=== PATIENT | female | born 1995 | race Caucasian/White ===

== ENCOUNTER 2018-08-13 18:17 | Emergency (ER) | payer OTHER, SELFPAY ==
[2018-08-13] MEDS ORDERED: IBUPROFEN 400 MG TAB ONE (20:15)
[2018-08-13] MEDS ORDERED: IBUPROFEN 200 MG TAB PO ONE (20:16)
--- NOTE | 2018-08-13 20:46 | RAD REPORT ---
EXAM DESCRIPTION: RAD - Knee Right 3 View - 08/13/2018 8:28 pm CLINICAL HISTORY: PAIN Trauma COMPARISON: No comparisons FINDINGS: Intraarticular fracture of the lateral tibial plateau is seen with a moderate lipomohemart hrosis. No dislocation evident.
--- NOTE | 2018-08-13 21:31 | EDPHYS ---
Physician Documentation [facility] Name: Radha Aragon Age: 23 yrs Sex: Female : 1995 Arrival Date: 08/13/2018 Time: 18:19 Bed 15 Private MD: ED Physician Cole Villalobos HPI: 08/13 21:26 This 23 yrs old Female presents to ER via Wheelchair with complaints of Knee gs Injury. 21:26 The complaints affect the right knee. Context: The problem was sustained at a sports gs field or court, resulted from the patient falling, while jumping. Onset: The symptoms/episode began/occurred acutely, just prior to arrival. Modifying factors: the symptoms are aggravated by movement, weight bearing. Associated signs and symptoms: Pertinent negatives numbness, weakness. Severity of symptoms: At their worst the symptoms were moderate, in the emergency department the symptoms are unchanged. The patient has not experienced similar symptoms in the past. 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 - Social history:: Smoking status: Patient/guardian denies using tobacco. - Ebola Screening: : No symptoms or risks identified at this time. ROS: 21:26 All other systems are negative. gs Exam: 21:26 Head/Face: Normocephalic, atraumatic. Eyes: Pupils equal round and reactive to light, gs extra-ocular motions intact. Lids and lashes normal. Conjunctiva and sclera are non-icteric and not injected. Cornea within normal limits. Periorbital areas with no swelling, redness, or edema. ENT: Nares patent. No nasal discharge, no septal abnormalities noted. Tympanic membranes are normal and external auditory canals are clear. Oropharynx with no redness, swelling, or masses, exudates, or evidence of obstruction, uvula midline. Mucous membranes moist. Neck: Trachea midline, no thyromegaly or masses palpated, and no cervical lymphadenopathy. Supple, full range of motion without nuchal rigidity, or vertebral point tenderness. No Meningismus. Chest/axilla: Normal chest wall appearance and motion. Nontender with no deformity. No lesions are appreciated. Cardiovascular: Regular rate and rhythm with a normal S1 and S2. No gallops, murmurs, or rubs. Normal PMI, no JVD. No pulse deficits. Respiratory: Lungs have equal breath sounds bilaterally, clear to auscultation and percussion. No rales, rhonchi or wheezes noted. No increased work of breathing, no retractions or nasal flaring. Abdomen/GI: Soft, non-tender, with normal bowel sounds. No distension or tympany. No guarding or rebound. No evidence of tenderness throughout. Back: No spinal tenderness. No costovertebral tenderness. Full range of motion. Skin: Warm, dry with normal turgor. Normal color with no rashes, no lesions, and no evidence of cellulitis. Neuro: Awake and alert, GCS 15, oriented to person, place, time, and situation. Cranial nerves II-XII grossly intact. Motor strength 5/5 in all extremities. Sensory grossly intact. Cerebellar exam normal. Normal gait. 21:26 Constitutional: The patient appears alert, awake, uncomfortable. 21:26 Musculoskeletal/extremity: ROM: limited active range of motion, limited passive range of motion, limited active range of motion due to pain, limited passive range of motion due to pain, Pulses: are normal with no appreciated deficits, Sensation intact. Joints: the right knee displays effusion, painful range of motion, swelling, tenderness. Vital Signs: 18:50 BP 124 / 86; Pulse 110; Resp 18 S; Temp 98.4(TE); Pulse Ox 99% on R/A; Weight 92.53 kg aa5 (R); Height 5 ft. 2 in. (157.48 cm) (R); Pain 8/10; 20:30 BP 120 / 77; Pulse 78; Resp 16; Temp 98.4; Pulse Ox 99% on R/A; Pain 4/10; ls4 22:05 BP 122 / 70; Pulse 98; Resp 16; Temp 98.4(O); Pulse Ox 99% on R/A; Pain 5/10; ls4 18:50 Body Mass Index 37.31 (92.53 kg, 157.48 cm) aa5 MDM: 19:24 Patient medically screened. 21:26 Differential diagnosis: dislocation, closed fracture, contusion. Data reviewed: vital gs signs, nurses notes. Response to treatment: the patient's symptoms have mildly improved after treatment, and as a result, I will discharge patient. 08/13 19:25 Order name: Knee Right 3 View XRAY; Complete Time: 20:56 08/13 20:57 Order name: Knee Immobilizer; Complete Time: 22:08 Administered Medications: 19:48 Drug: Ibuprofen 600 mg Route: PO; ls4 20:18 Follow up: Response: No adverse reaction; Marked relief of symptoms ls4 Disposition: 08/13/18 21:31 Discharged to Home. Impression: Nondisplaced bicondylar fracture of unspecified tibia. - Condition is Stable. - Discharge Instructions: Nondisplaced Tibial Plateau Fracture. - Prescriptions for Tramadol 50 mg Oral Tablet - take 1 tablet by ORAL route every 8 hours As needed as needed; 10 tablet. - Medication Reconciliation Form, Thank You Letter, Antibiotic Education, Prescription Opioid Use form. - Follow up: Private Physician; When: 2 - 3 days; Reason: Re-evaluation by your physician. Signatures: Dispatcher [employer] EDAleyda Reardon RN RN aa5 Cole Villalobos MD MD Ester Dooley RN RN ls4 Corrections: (The following items were deleted from the chart) 22:11 21:31 08/13/2018 21:31 Discharged to Home. Impression: Nondisplaced bicondylar fracture ls4 of unspecified tibia. Condition is Stable. Forms are Medication Reconciliation Form, Thank You Letter, Antibiotic Education, Prescription Opioid Use. Follow up: Private Physician; When: 2 - 3 days; Reason: Re-evaluation by your physician.
--- NOTE | 2018-08-13 21:31 | ER ---
Nurse's Notes [facility] Name: Radha Aragon Age: 23 yrs Sex: Female : 1995 Arrival Date: 08/13/2018 Time: 18:19 Bed 15 Private MD: Diagnosis: Nondisplaced bicondylar fracture of unspecified tibia Presentation: 08/13 18:49 Presenting complaint: Patient states: "I was jumping on a trampoline and when I went aa5 down I felt my knee go to one side and then come back in". Pt c/o right knee pain. Transition of care: patient was not received from another setting of care. Onset of symptoms was August 13, 2018. Risk Assessment: Do you want to hurt yourself or someone else? Patient reports no desire to harm self or others. Initial Sepsis Screen: Does the patient meet any 2 criteria? No. Patient's initial sepsis screen is negative. Does the patient have a suspected source of infection? No. Patient's initial sepsis screen is negative. Care prior to arrival: None. 18:49 Method Of Arrival: Wheelchair aa5 18:49 Acuity: JUAN ANTONIO 4 aa5 Triage Assessment: 18:57 General: Appears in no apparent distress. Behavior is calm, cooperative. ls4 Musculoskeletal: No deficits noted. 19:00 Injury Description: felt knee shift while jumping at [employer]. 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 - Social history:: Smoking status: Patient/guardian denies using tobacco. - Ebola Screening: : No symptoms or risks identified at this time. Screenin:57 Abuse screen: Denies threats or abuse. Denies injuries from another. Nutritional ls4 screening: No deficits noted. Tuberculosis screening: No symptoms or risk factors identified. Fall Risk None identified. Assessment: 19:21 Pain: Complains of pain in right knee Pain currently is 6 out of 10 on a pain scale. ls4 Neuro: No deficits noted. Cardiovascular: No deficits noted. Respiratory: No deficits noted. GI: No deficits noted. : No deficits noted. Musculoskeletal: No deficits noted. 21:00 Reassessment: Patient and/or family updated on plan of care and expected duration. Pain ls4 level reassessed. Patient is alert, oriented x 3, equal unlabored respirations, skin warm/dry/pink. 22:06 Reassessment: Patient and/or family updated on plan of care and expected duration. Pain ls4 level reassessed. Patient is alert, oriented x 3, equal unlabored respirations, skin warm/dry/pink. crutches and teaching for crutches completed with return demonstration of safe use of crutches. right knee immobilizer placed, teaching done regarding use. Vital Signs: 18:50 BP 124 / 86; Pulse 110; Resp 18 S; Temp 98.4(TE); Pulse Ox 99% on R/A; Weight 92.53 kg aa5 (R); Height 5 ft. 2 in. (157.48 cm) (R); Pain 8/10; 20:30 BP 120 / 77; Pulse 78; Resp 16; Temp 98.4; Pulse Ox 99% on R/A; Pain 4/10; ls4 22:05 BP 122 / 70; Pulse 98; Resp 16; Temp 98.4(O); Pulse Ox 99% on R/A; Pain 5/10; ls4 18:50 Body Mass Index 37.31 (92.53 kg, 157.48 cm) aa5 ED Course: 18:19 Patient arrived in ED. rg4 18:49 Triage completed. aa5 18:49 Arm band placed on. aa5 18:55 Placed in gown. Bed in low position. Call light in reach. Side rails up X 1. ls4 18:55 Warm blanket given. ls4 18:57 Ester Dooley, PATSY is Primary Nurse. ls4 19:19 Cole Villalobos MD is Attending Physician. gs 19:24 No provider procedures requiring assistance completed. Patient did not have IV access ls4 during this emergency room visit. 20:28 Knee Right 3 View XRAY In Process Unspecified. EDMS Administered Medications: 19:48 Drug: Ibuprofen 600 mg Route: PO; ls4 20:18 Follow up: Response: No adverse reaction; Marked relief of symptoms ls4 Outcome: 21:31 Discharge ordered by . gs 22:10 Discharged to home with crutches, with family. ls4 22:10 Condition: stable 22:10 Discharge instructions given to patient, family, Instructed on discharge instructions, follow up and referral plans. medication usage, safety practices, Demonstrated understanding of instructions, follow-up care, medications, crutch walking, Prescriptions given X 1. 22:11 Patient left the ED. ls4 Signatures: Dispatcher [employer] EDAleyda Reardon RN RN aa5 Molly Whatley rg4 Cole Villalobos MD MD gs Stewart, Lisa, RN RN ls4 Corrections: (The following items were deleted from the chart) 20:17 19:00 Ibuprofen 600 mg PO ls4 ls4
== END 2018-08-13 22:11 | disposition home or self-care (01) ==
LOC: ER 18:17
DX: S82.144A Nondisplaced bicondylar fracture of right tibia, initial encounter for closed fracture (principal); W19.XXXA Unspecified fall, initial encounter; Y93.39 Activity, other involving climbing, rappelling and jumping off; Y92.39 Other specified sports and athletic area as the place of occurrence of the external cause
CPT/HCPCS: 99284